=== PATIENT | male | born 1990 | race Caucasian/White ===

== ENCOUNTER 2017-01-10 13:38 | Emergency (ER) | payer OTHER ==
[~2017-01-10] VITALS: Ht 180.3 cm; Wt 84.1 kg
[~2017-01-10 13:38] MED LIST: NO CURRENT MEDS
[2017-01-10] MEDS ORDERED: HYDROCODONE/ACETAMINOPHEN 5-325 MG TABLET PO ONE (16:45)
[2017-01-10 18:00] VITALS: BP 128/72
== END 2017-01-10 18:51 | disposition home or self-care (01) ==
LOC: EMS 13:39
DX: S40.012A Contusion of left shoulder, initial encounter (principal); S80.02XA Contusion of left knee, initial encounter; S60.012A Contusion of left thumb without damage to nail, initial encounter; S60.022A Contusion of left index finger without damage to nail, initial encounter; S09.92XA Unspecified injury of nose, initial encounter; F12.90 Cannabis use, unspecified, uncomplicated; F17.210 Nicotine dependence, cigarettes, uncomplicated; V47.5XXA Car driver injured in collision with fixed or stationary object in traffic accident, initial encounter; Y93.89 Activity, other specified; Y92.89 Other specified places as the place of occurrence of the external cause; Y99.8 Other external cause status
CPT/HCPCS: 70160; 99284

== ENCOUNTER 2017-02-22 19:04 | Emergency (ER) | payer SELFPAY ==
[~2017-02-22] VITALS: Ht 180.3 cm; Wt 81.8 kg
[2017-02-22] MEDS ORDERED: POVIDONE-IODINE 10% 15 ML SOLUTION UD TP ONE (21:00)
[2017-02-22] MEDS ORDERED: IBUPROFEN 800 MG TABLET PO ONE (21:00)
[2017-02-22 21:24] VITALS: BP 135/77
== END 2017-02-22 21:26 | disposition home or self-care (01) ==
LOC: EMS 19:11
DX: S61.411A Laceration without foreign body of right hand, initial encounter (principal); L08.9 Local infection of the skin and subcutaneous tissue, unspecified; W26.9XXA Contact with unspecified sharp object(s), initial encounter; Y93.89 Activity, other specified; Y92.89 Other specified places as the place of occurrence of the external cause; Y99.0 Civilian activity done for income or pay
CPT/HCPCS: 99284